=== PATIENT | male | born 1950 | race Caucasian/White ===

== ENCOUNTER 2016-07-24 19:06 | Emergency (ER) | payer MEDICARE ==
--- NOTE | 2016-07-24 20:06 | Emergency Department Record ---
History of Present Illness - General Chief complaint: Vomiting Stated complaint: CAN'T GET ANYTHING TO GO DOWN Time Seen by Provider: 07/24/16 19:31 Source: Patient Mode of Arrival: Ambulatory Limitations: No limitations - History of Present Illness Initial comments: pt took his pills and felt like they got stuck in his esophagus this evening. he has been unable to swallow his saliva and it has been painful to try. he has had this happen before and he thinks his spincter closes but he has never had a medical valuation. now that he has arrived here he feels the symptoms have improved complaint: Vomiting Onset/Timin -: Hour(s) Description of Vomiting: Other Associated Abdominal Pain: No Radiation: None Severity: Mild Consistency: Constant Improves with: None Worsens with: Eating Associated Symptoms: Denies other symptoms - Related Data Home Medications Medication Instructions Recorded Confirmed Last Taken Cholecalciferol (Vitamin D3) 50,000 unit PO WEEKLY 07/24/16 07/24/16 Unknown [Vitamin D] Dutasteride [Avodart] 0.5 mg PO DAILY 07/24/16 07/24/16 Unknown Fexofenadine HCl [Shantel Allergy] 60 mg PO DAILY 07/24/16 07/24/16 Unknown Lamotrigine 25 mg PO DAILY 07/24/16 07/24/16 Unknown [place]-3 Fatty Acids [Fish Oil] 800 mg PO DAILY 07/24/16 07/24/16 Unknown Simvastatin [Zocor] 10 mg PO DAILY 07/24/16 07/24/16 Unknown Allergies Allergy/AdvReac Type Severity Reaction Status Date / Time Penicillins Allergy unknown Verified 09/03/14 15:00 Travel Screening - Travel/Exposure Within Last 30 Days Have you traveled within the last 30 days?: No - Travel/Exposure Within Last Year Have you traveled outside the [place] in the last year?: No - Additonal Travel Details Have you been exposed to anyone with a communicable illness?: No - Travel Symptoms Symptom Screening: None Review of Systems Reviewed: No additional complaints except as noted below Constitutional: Reports: As per HPI. Denies: Chills, Fever, Malaise, Night sweats, Weakness, Weight change Eyes: Reports: As per HPI. Denies: Eye discharge, Eye pain, Photophobia, Vision change ENT: Reports: As per HPI. Denies: Congestion, Dental pain, Ear pain, Epistaxis , Hearing loss, Throat pain Respiratory: Reports: As per HPI. Denies: Cough, Dyspnea, Hemoptysis, Stridor, Wheezes Cardiovascular: Reports: As per HPI. Denies: Arrhythmia, Chest pain, Dyspnea on exertion, Edema, Murmurs, Orthopnea, Palpitations, Paroxysmal nocturnal dyspnea, Rheumatic Fever, Syncope Endocrine: Reports: As per HPI. Denies: Fatigue, Heat or cold intolerance, Polydipsia, Polyuria Gastrointestinal: Reports: As per HPI. Denies: Abdominal pain, Constipation, Diarrhea, Hematemesis, Hematochezia, Melena, Nausea, Vomiting Genitourinary: Reports: As per HPI. Denies: Dysuria, Frequency, Hematuria, Incontinence, Retention, Testicular pain, Testicular mass, Urgency Musculoskeletal: Reports: As per HPI. Denies: Arthralgia, Back pain, Gout, Joint swelling, Myalgia, Neck pain Skin: Reports: As per HPI. Denies: Bruising, Change in color, Change in hair/ nails, Lesions, Pruritus, Rash Neurological: Reports: As per HPI. Denies: Abnormal gait, Confusion, Headache, Numbness, Paresthesias, Seizure, Tingling, Tremors, Vertigo, Weakness Psychiatric: Reports: As per HPI. Denies: Anxiety, Auditory hallucinations, Depression, Homicidal thoughts, Suicidal thoughts, Visual hallucinations Hematological/Lymphatic: Reports: As per HPI. Denies: Anemia, Blood Clots, Easy bleeding, Easy bruising, Swollen glands Past Medical History - SOCIAL HISTORY Smoking Status: Never smoker Alcohol Use: Occassional Drug Use: None - RESPIRATORY Hx Respiratory Disorders: No - CARDIOVASCULAR Hx Cardio Disorders: Yes Comment:: high cholesterol - NEURO Hx Neuro Disorders: Yes Hx Neuropathy: (left LE and foot) - GI Hx GI Disorders: No - Hx Genitourinary Disorders: Yes Hx Prostate Problems: Yes (BPH) - ENDOCRINE Hx Endocrine Disorders: No - MUSCULOSKELETAL Hx Musculoskeletal Disorders: Yes Hx Arthritis: Yes Comment:: hip and pelvic pain - PSYCH Hx Psych Problems: Yes Comment:: Bipolar - HEMATOLOGY/ONCOLOGY Hx Hematology/Oncology Disorders: Yes Hx Blood Transfusions: Yes Hx Blood Transfusion Reaction: No Family Medical History Any Significant Family History?: No Hx Cancer: Father, Mother, Grandparents *Cancer Comment: skin Hx Heart Disease: Father *Heart Comment: [place] Physical Exam - General General Appearance: Alert, Oriented x3, Cooperative, No acute distress - Head Head exam: Normal inspection - Eye Eye exam: Normal appearance, PERRL, EOMI Pupils: Normal accommodation - ENT ENT exam: Normal exam, Mucous membranes moist, Normal external ear exam, Normal orophraynx Ear exam: Normal external inspection. negative: External canal tenderness Nasal Exam: Normal inspection. negative: Discharge, Sinus tenderness Mouth exam: Normal external inspection, Tongue normal Teeth exam: Normal inspection. negative: Dental caries Throat exam: Normal inspection. negative: Tonsillar erythema, Tonsillar exudate - Neck Neck exam: Normal inspection, Full ROM. negative: Tenderness - Respiratory Respiratory exam: Normal lung sounds bilaterally. negative: Respiratory distress - Cardiovascular Cardiovascular Exam: Regular rate, Normal rhythm, Normal heart sounds - GI/Abdominal GI/Abdominal exam: Soft, Normal bowel sounds. negative: Tenderness - Rectal Rectal exam: Deferred - exam: Deferred - Extremities Extremities exam: Normal inspection, Full ROM, Normal capillary refill. negative: Tenderness - Back Back exam: Reports: Normal inspection, Full ROM. Denies: Muscle spasm, Rash noted, Tenderness - Neurological Neurological exam: Alert, CN II-XII intact, Normal gait, Oriented X3 - Psychiatric Psychiatric exam: Normal affect, Normal mood - Skin Skin exam: Dry, Intact, Normal color, Warm Course Vital Signs 07/24/16 19:16 Temperature 98.8 F Pulse Rate 89 Respiratory 20 Rate Blood Pressure 145/105 Pulse Ox 98 Disposition Disposition: Discharge Clinical Impression: Acute obstruction of esophagus Disposition: Home, Self-Care Condition: (1) Good Instructions: Esophageal Stricture (ED), Esophageal Spasm (ED) Additional Instructions: follow up with dr arellano tomorrow to have scope arranged. soft diet tonight. return sooner if worse Forms: Patient Portal Access
== END 2016-07-24 21:06 | disposition home or self-care (01) ==
LOC: ER 19:06
DX: K22.2 Esophageal obstruction (principal); R11.10 Vomiting, unspecified
CPT/HCPCS: 70360; 71020; 99283

== ENCOUNTER 2016-08-06 10:18 | Day surgery (SDC) | payer MEDICARE ==
[2016-08-06] MEDS ORDERED: LIDOCAINE 2% MDV (20MG/ML) 20ML VIAL IV ONE (15:38)
[2016-08-06] MEDS ORDERED: FENTANYL PF 100MCG/2ML VIAL IV ONE (15:38)
[2016-08-06] MEDS ORDERED: PROPOFOL 10 MG/ML VIAL IV ONE (15:38)
--- NOTE | 2016-08-08 11:10 | Operative Note ---
DATE OF SURGERY: 08/06/2016 REFERRING PHYSICIAN: Romulo Owusu DO PREOPERATIVE DIAGNOSIS: See below. POSTOPERATIVE DIAGNOSIS: See below. PROCEDURE: ESOPHAGOGASTRODUODENOSCOPY with multiple biopsies. INDICATION: Dysphagia. HISTORY: Patient was a pleasant 66-year-old gentleman who presented for the first time for upper endoscopy following complaint of dysphagia. He went to the Emergency Department unable to swallow his saliva. In the Emergency Department, he had a chest x-ray, which was fairly unremarkable. Subsequently, his symptoms resolved spontaneously. He denies previous upper endoscopy or upper GI x-ray. He has had intermittent dysphagia for more than a year now. He especially notices problems with pills. He also feels some symptoms related to oropharyngeal dysphagia with a requirement of pressure to swallow food down initially. Intravenous sedation was administered by the Department of Anesthesiology and included Diprivan titrated to effect. PROCEDURE: Following informed consent from this alert individual, including a discussion of the risks and benefits of the procedure and an opportunity for the patient to ask questions, the patient was placed in the left lateral decubitus position. An Olympus [id number] video endoscope was inserted into the esophagus without resistance. The posterior pharynx appeared unremarkable. The vocal cords are normal. The cervical esophagus appeared free from changes. The mid and distal esophagus, however, were abnormal with ringed esophagus noted. The lumen was not significant compromised. The GE junction revealed some edema and erythema, but no britta ulcerations noted. The stomach was entered and found to be unremarkable The pylorus was patent. The duodenal bulb, sweep and descending duodenum were examined in a serial fashion and demonstrated an erythematous mucosa in a patchy distribution. The endoscope was then withdrawn back into the stomach, where retroflexion accomplished following air insufflation failed to demonstrate any changes. The endoscope was then straightened and advanced to the duodenum where biopsies were taken to evaluate for possible duodenitis. The endoscope was then withdrawn back through the distal esophagus where biopsies were then taken from the distal esophageal segment and from the mid esophageal segment and placed in separate containers. Also noted was a white flat polyp at the distal esophagus removed with biopsy forceps. After all biopsies were completed, the endoscope was then withdrawn. The patient tolerated the procedure well and was returned to the recovery area in stable condition. IMPRESSION: 1. Ringed esophagus, most compatible with eosinophilic esophagitis. Biopsies taken from the distal and mid esophagus. 2. Small 3-4 mm polyp in the distal esophagus removed with biopsy forceps. 3. Duodenitis. Biopsies taken. RECOMMENDATIONS: Patient was advised to start with Prilosec 40 mg twice daily. Further recommendations may be forthcoming pending results of biopsy. Will follow up in the GI Clinic in the next 2 months or so to assess his progress. Repeat endoscopy will be discussed as well. As always, thank you for allowing me to participate in the care of your patient. Claudio Pandey, CC: Romulo Owusu DO MTDD
== END 2016-08-06 12:40 | disposition home or self-care (01) ==
LOC: HOP 10:18
PROVIDERS: ATTEND Internal Medicine Gastroenterology
DX: K22.2 Esophageal obstruction (principal); K20.0 Eosinophilic esophagitis; D13.0 Benign neoplasm of esophagus; E78.00 Pure hypercholesterolemia, unspecified; F31.9 Bipolar disorder, unspecified; I10 Essential (primary) hypertension; Z79.899 Other long term (current) drug therapy
CPT/HCPCS: 43239; 00740; 84450; 84460; 85025; 82306; 80048; 81003; 80061; G0103; J3010

== ENCOUNTER 2017-01-05 16:08 | Emergency (ER) | payer MEDICARE ==
[2017-01-05] MEDS ORDERED: ASPIRIN 325 MG TABLET PO ONE (16:10)
[2017-01-05] MEDS ORDERED: MORPHINE SULFATE 5 MG/ML PFS IVP ONE ×2 (16:10→16:36)
--- NOTE | 2017-01-05 16:16 | Emergency Department Record ---
History of Present Illness - General Chief Complaint: Chest Pain Stated Complaint: CHEST PAIN Time Seen by Provider: 01/05/17 16:10 Source: Patient Mode of Arrival: Ambulatory Limitations: No limitations - History of Present Illness Initial Comments: 66 yo male presents with about 15 minutes of mid lower chest pain, shortness of breath and sweating. He denies an history of CAD. He does have a history of esophagitis. No similar symptoms recently. No recent stress test of the heart. he states the pain radiates to the back and it hurts to breath. No recent trip or travel. PCP is Dr Owusu. Complaint: Chest pain -: Minutes(s) Onset: During rest Pain Location: Substernal Pain Radiation: Other (lower chest) Quality: Aching Consistency: Constant Improves With: Nothing Worsens With: Nothing Context: Other Anginal Symptoms: Diaphoresis, Dyspnea - Related Data Home Medications Medication Instructions Recorded Confirmed Last Taken Omeprazole [Omeprazole] 40 mg PO BID 01/05/17 01/05/17 Unknown Allergies Allergy/AdvReac Type Severity Reaction Status Date / Time Penicillins Allergy unknown Verified 09/03/14 15:00 Review of Systems Constitutional: Denies: Chills, Fever, Malaise, Weakness Eyes: Denies: Eye discharge ENT: Denies: Congestion, Throat pain Respiratory: Reports: Dyspnea. Denies: Cough Cardiovascular: Reports: Chest pain. Denies: Palpitations, Syncope Endocrine: Denies: Fatigue Gastrointestinal: Denies: Abdominal pain, Diarrhea, Nausea, Vomiting Genitourinary: Denies: Discharge, Dysuria, Frequency, Hematuria Musculoskeletal: Denies: Arthralgia, Back pain, Neck pain Skin: Denies: Bruising, Change in color, Rash Neurological: Denies: Confusion, Headache, Numbness, Weakness Psychiatric: Denies: Anxiety Hematological/Lymphatic: Denies: Blood Clots, Easy bleeding, Easy bruising, Swollen glands Past Medical History - SOCIAL HISTORY Smoking Status: Never smoker - RESPIRATORY Hx Respiratory Disorders: Yes Hx Sleep Apnea: Yes Hx of CPAP: No - CARDIOVASCULAR Hx Cardio Disorders: Yes Comment:: high cholesterol - NEURO Hx Neuro Disorders: Yes Hx Neuropathy: Yes (left LE and foot) - GI Hx GI Disorders: Yes Hx Reflux: Yes - Hx Genitourinary Disorders: Yes Hx Prostate Problems: Yes (BPH) - ENDOCRINE Hx Endocrine Disorders: No - MUSCULOSKELETAL Hx Musculoskeletal Disorders: Yes Hx Arthritis: Yes Comment:: hip and pelvic pain - PSYCH Hx Psych Problems: Yes Comment:: Bipolar - HEMATOLOGY/ONCOLOGY Hx Hematology/Oncology Disorders: Yes Hx Blood Transfusions: Yes Hx Blood Transfusion Reaction: No Family Medical History Hx Cancer: Father, Mother, Grandparents *Cancer Comment: skin Hx Heart Disease: Father *Heart Comment: [place] Physical Exam - General General Appearance: Alert, Oriented x3, Cooperative, No acute distress, Anxious Limitations: No limitations - Head Head exam: Normal inspection - Eye Eye exam: Normal appearance, PERRL. negative: Conjunctival injection, Periorbital swelling, Scleral icterus - ENT ENT exam: Normal exam, Mucous membranes moist Ear exam: Normal external inspection Nasal Exam: Normal inspection Mouth exam: Normal external inspection - Neck Neck exam: Normal inspection, Full ROM. negative: Tenderness - Respiratory Respiratory exam: Normal lung sounds bilaterally. negative: Respiratory distress - Cardiovascular Cardiovascular Exam: Regular rate, Normal rhythm, Normal heart sounds Peripheral Pulses: 2+: Radial (R), Radial (L) - GI/Abdominal GI/Abdominal exam: Soft. negative: Distended, Tenderness - Rectal Rectal exam: Deferred - exam: Deferred - Extremities Extremities exam: Normal inspection, Full ROM, Normal capillary refill. negative: Tenderness - Back Back exam: Reports: Normal inspection, Full ROM. Denies: Muscle spasm, Rash noted, Tenderness - Neurological Neurological exam: Alert, Normal gait, Oriented X3 - Psychiatric Psychiatric exam: Normal affect, Normal mood - Skin Skin exam: Diaphoretic Course - Reevaluation(s) Reevaluation #1: EKG NSR, mild artifact due to movement. rate is 79, intervals are normal, axis is normal, ST no ST elevation or depression. Repeat will be performed LIDIA after pain controlled. 01/05/17 16:14 EKG #2 sinus rhythm rate 78, intervals normal, axis normal, ST no acute changes still mild artifact in inferior leads. 01/05/17 16:20 The patient reports he is steadily improving He is not shaking as much so a third EKG was ordered 01/05/17 16:47 Third EKG completed without any artifact EKG#3 16:48 NSR rate 64, intervals normal, axis normal, ST NS inferior changes. 01/05/17 16:55 The pain with inspiration is still present with mild pain to the back. ACS still strongly considered as well as PE or dissection given the pain through to the back. 01/05/17 16:56 The labs are now back, no acute changes on the CBC, CMP, Troponin 01/05/17 17:38 The CXR report was negative 01/05/17 17:40 CTA of the chest is negative for acute process. No PE, aneurysm or dissection. 01/05/17 17:42 The patient is completely pain free at this time He prefers [facility] for consultation/transfer. 01/05/17 17:48 I TAN [facility] at [facility] He accepts the patient for transfer. The patient remains pain free 01/05/17 17:59 Medical Decision Making - Lab Data Result diagrams: 01/05/17 16:15 01/05/17 16:15 Disposition Clinical Impression: Chest pain Qualifiers: Chest pain type: unspecified Qualified Code(s): R07.9 - Chest pain, unspecified Dyspnea Qualifiers: Dyspnea type: unspecified Qualified Code(s): R06.00 - Dyspnea, unspecified Disposition: Acute Care Hospital Transfer Condition: (1) Good Forms: Patient Portal Access Quality - Quality Measures Quality Measures: N/A - Blood Pressure Screening Does Patient Have Any of the Following: No Blood Pressure Classification: Hypertensive Reading Systolic Measurement: 144 Diastolic Measurement: 77 Screening for High Blood Pressure: < Pre-Hypertensive BP, F/U Documented > [ [id number]] Pre-Hypertensive Follow-up Interventions: Referral to alternative/primary care provider.
[2017-01-05] MEDS: NITROGLYCERIN 0.4MG SL TABLET #25 BTL SL PRN ×3 (16:31→17:02)
[2017-01-05 17:01] LABS: HEMATOCRIT 42.2 % (42.0-52.0); HEMOGLOBIN 14.6 gm/dl (14.0-18.0); MEAN CELL VOLUME 90.6 fl (81-97); MEAN CORPUSCULAR HEMOGLOBIN 31.3 pg (27-33); MEAN CORPUSCULAR HGB CONC 34.6 g/dl (32-36); MEAN PLATELET VOLUME 9.6 fl (7.4-10.4); PLATELET COUNT 271 K/uL (130-400); RED BLOOD COUNT 4.66 M/uL (4.40-5.70); RED CELL DISTRIBUTION WIDTH 13.2 % (11.5-14.5); WHITE BLOOD COUNT W/O DIFF 8.1 K/uL (4.2-12.2)
[2017-01-05 17:10] LABS: INR 1.02; PARTIAL THROMBOPLASTIN TIME 22.9 SECONDS (24.5-39.1)
[2017-01-05 17:35] LABS: ALB/GLOB RATIO 1.7 (1.1-1.8); ALBUMIN 4.3 g/dL (4.0-5.0); ALKALINE PHOSPHATASE 74 U/L (40-129); ALT/SGPT 27 U/L (<41); AST/SGOT 34 U/L (10.0-50.0); BLOOD UREA NITROGEN 17 mg/dL (8-23); CKMB 4.2 ng/mL (<6.73); CREATINE PHOSPHOKINASE 108 U/L (39-308); EST GLOMERULAR FILTRATION RATE > 60 mL/min; GLUCOSE,RANDOM 113 mg/dL (74-109); TOTAL PROTEIN 6.8 g/dL (6.6-8.7)
[2017-01-05 17:36] LABS: TROPONIN I < 0.30 ng/mL (0.00-0.300)
--- NOTE | 2017-01-07 08:16 | RADIOLOGY REPORT ---
EXAM: PORTABLE CHEST HISTORY: CHEST PAIN. TECHNIQUE: A single frontal view of the chest was obtained. Comparison: 07/24/16 chest. FINDINGS: The heart size is normal. Scarring in the left lung base. The lungs are otherwise clear. No pneumothorax. IMPRESSION: NO ACUTE CARDIOPULMONARY PROCESS. JOB NUMBER: [id number] MTDD
--- NOTE | 2017-01-07 08:19 | CT ANGIOGRAM REPORT ---
EXAM: CTA OF THE CHEST HISTORY: CHEST PAIN. TECHNIQUE: CTA of the chest was performed following IV administration of 93 ml of Omnipaque 350 contrast. Axial images were obtained with coronal and sagittal MIP reconstructions. Comparison: none. FINDINGS: The mediastinal vasculature enhances normally. There is no intraluminal filling defect to suggest pulmonary embolus. Negative for thoracic aortic aneurysm or dissection. The heart and pericardium are unremarkable. Limited evaluation of the upper abdomen is unremarkable. The osseous structures are grossly intact. No mediastinal or hilar adenopathy. There is no pneumothorax. The visualized airways are patent. Minor scarring in the lung bases. The lungs are otherwise clear. IMPRESSION: NEGATIVE FOR ACUTE INTRATHORACIC PROCESS. JOB NUMBER: [id number] [facility]
== END 2017-01-05 18:56 | disposition short-term general hospital (02) ==
LOC: ER 16:08
DX: R07.2 Precordial pain (principal); R06.00 Dyspnea, unspecified
CPT/HCPCS: 99285 ×2; 96376; 96374; 82550; 85730; 85610; 82553; 84484; 80053; 85027; 71010; 71275; 93005; 93010; Q9967; J2270

== ENCOUNTER 2018-08-11 08:27 | Day surgery (SDC) | payer MEDICARE ==
[2018-08-11] MEDS ORDERED: LIDOCAINE 2% MDV (20MG/ML) 20ML VIAL IV ONE (08:28)
[2018-08-11] MEDS ORDERED: PROPOFOL 10 MG/ML VIAL IV ONE (08:28)
[2018-08-11] MEDS ORDERED: FENTANYL PF 100MCG/2ML VIAL IV ONE (08:28)
--- NOTE | 2018-08-11 15:30 | Operative Note ---
OPERATION: ESOPHAGOGASTRODUODENOSCOPY with multiple biopsies. INDICATION: History of eosinophilic esophagitis noted endoscopically. The patient had one episode where a pill lodged in his esophagus. Since that time, he has had no episodes at all of any dysphagia. He is currently using 20 mg of Prilosec daily. He denies significant pyrosis. Overall, he feels quite well. His last endoscopy was 2 years ago. ANESTHESIA: Intravenous sedation was administered by the department of anesthesiology and included Diprivan titrated to effect. PROCEDURE: Following informed consent from this alert individual, including a discussion of the risks and benefits of the procedure and an opportunity for the patient to ask questions, the patient was in the left lateral decubitus position. The Olympus [id number] video endoscope was inserted into the esophagus without resistance. The proximal esophagus had a normal appearance with normal folds and distensibility. The mid esophagus demonstrated some rings noted compatible with history of EOE although the lumen did not seem to be significantly compromised. The distal esophageal segment appeared to be unremarkable as did the squamocolumnar junction. The stomach was entered and found to be normal. The pylorus was patent. The duodenal bulb, sweep and descending duodenum were examined in a serial fashion and found to be normal as well. The endoscope was drawn back in the stomach. Retroflexion accomplished following air insufflation was unremarkable. The endoscope was then straightened and withdrawn back throughout the distal esophagus where biopsies were taken from the distal esophageal segment with a second set of biopsies taken from the proximal esophagus to again evaluate for possible EOE. The endoscope was then withdrawn. The patient tolerated the procedure well and was returned to the recovery area in stable condition. IMPRESSION: Eosinophilic esophagitis endoscopically - mild. The patient has no symptoms of dysphagia. Biopsies taken from the distal and proximal esophagus. RECOMMENDATION: Pending results of pathology, the patient most likely will continue with omeprazole 20 mg daily. He will be following with Dr. Owusu as well. Further recommendations forthcoming. As always, thank you for allowing me to participate in the care of your patient. CC: DO DONATO Cummings
== END 2018-08-11 09:52 | disposition home or self-care (01) ==
LOC: HOP 08:27
PROVIDERS: ATTEND Internal Medicine Gastroenterology
DX: Z87.19 Personal history of other diseases of the digestive system (principal); K21.0 Gastro-esophageal reflux disease with esophagitis; E78.00 Pure hypercholesterolemia, unspecified; I10 Essential (primary) hypertension
CPT/HCPCS: 43239; 00731; J3010

== ENCOUNTER 2019-05-03 04:42 | Emergency (ER) | payer MEDICARE ==
[2019-05-03] MEDS ORDERED: METHYLPREDNISOLONE PF 125MG/VIAL IVP ONE (04:50)
[2019-05-03] MEDS ORDERED: RANITIDINE HCL 50 MG in 0.9 % SODIUM CHLORIDE 100ML 100 ML IVPB ONE (04:50)
[2019-05-03] MEDS ORDERED: DIPHENHYDRAMINE HCL 50 MG/ML VIAL IVP ONE (04:50)
--- NOTE | 2019-05-03 04:50 | Emergency Department Record ---
History of Present Illness - General Chief complaint: Allergic Reaction Stated complaint: ALLERGIC REACTION TO MED Time Seen by Provider: 05/03/19 04:44 Source: Patient, Family Mode of Arrival: Ambulatory Limitations: No limitations - History of Present Illness Initial Comments: 68 yo male presents with mild lower lip swelling that started around 5 pm . He reports that he had several days of cough. The cough has been non productive. The cough is now nearly gone. No fevers. He was diagnosed with Influenza A on . He had a chest XR performed at that time as well. The chest XR suggested a infiltrate in the RML. He was started on Motrin and Zithromax. Of note, he is on Losartan as well. No trouble with swallowing. No speech changes. No throat swelling. No upper lip swelling. Regarding the influenza symptoms he is much better. No fevers, chills, headaches or body aches. All of those symptoms have resolved. MD Complaint: Allergic reaction, Facial swelling (Lower lip) -: Hour(s) (12) Symptoms: Lip swelling (Lower only) Severity: Mild Treatment Prior to Arrival: None Previous Allergy History: None - Related Data Previous Rx's Medication Instructions Recorded Prednisone [Prednisone 20Mg] 20 mg PO BID #10 tab 05/03/19 Allergies Allergy/AdvReac Type Severity Reaction Status Date / Time Penicillins Allergy unknown Verified 05/03/19 04:52 Review of Systems Constitutional: Denies: Chills, Fever, Malaise, Weakness Eyes: Denies: Eye discharge, Eye pain, Vision change ENT: Denies: Congestion, Dental pain, Ear pain, Throat pain Respiratory: Reports: Cough. Denies: Dyspnea, Wheezes Cardiovascular: Denies: Chest pain Endocrine: Denies: Fatigue Gastrointestinal: Denies: Abdominal pain, Diarrhea, Nausea, Vomiting Genitourinary: Denies: Dysuria, Frequency, Hematuria Musculoskeletal: Denies: Arthralgia, Back pain, Myalgia Skin: Denies: Bruising, Change in color, Rash Neurological: Denies: Headache, Vertigo, Weakness Psychiatric: Denies: Anxiety Hematological/Lymphatic: Denies: Easy bleeding, Easy bruising Past Medical History - SOCIAL HISTORY Smoking Status: Never smoker - RESPIRATORY Hx Respiratory Disorders: Yes Hx Sleep Apnea: Yes Hx of CPAP: No - CARDIOVASCULAR Hx Cardio Disorders: Yes Hx Hypertension: Yes Comment:: high cholesterol - NEURO Hx Neuro Disorders: Yes Hx Neuropathy: Yes (left LE and foot) - GI Hx GI Disorders: Yes Hx Reflux: Yes Comment:: dysphagia - Hx Genitourinary Disorders: Yes Hx Prostate Problems: Yes (BPH) - ENDOCRINE Hx Endocrine Disorders: No - MUSCULOSKELETAL Hx Musculoskeletal Disorders: Yes Hx Arthritis: Yes Comment:: hip and pelvic pain - PSYCH Hx Psych Problems: Yes Comment:: Bipolar - HEMATOLOGY/ONCOLOGY Hx Hematology/Oncology Disorders: Yes Hx Blood Transfusions: Yes Hx Blood Transfusion Reaction: No Family Medical History Hx Cancer: Father, Mother, Grandparents *Cancer Comment: skin Hx Heart Disease: Father *Heart Comment: NE Physical Exam - General General Appearance: Alert, Oriented x3, Cooperative, No acute distress Limitations: No limitations - Head Head exam: Atraumatic, Normal inspection - Eye Eye exam: Normal appearance, PERRL. negative: Conjunctival injection, Periorbital swelling, Scleral icterus - ENT ENT exam: Normal exam, Mucous membranes dry, Mucous membranes moist, Normal orophraynx Ear exam: Normal external inspection Nasal Exam: Normal inspection Mouth exam: Other (Mild lower lip swelling). negative: Normal external inspection, Drooling, Muffled voice, Tongue elevation, Tongue normal, Trismus Teeth exam: Normal inspection Throat exam: Normal inspection - Neck Neck exam: Normal inspection, Full ROM. negative: Lymphadenopathy - Respiratory Respiratory exam: Normal lung sounds bilaterally. negative: Respiratory distress, Rhonchi, Stridor, Wheezes - Cardiovascular Cardiovascular Exam: Regular rate, Normal rhythm, Normal heart sounds - Back Back exam: Denies: CVA tenderness (R), CVA tenderness (L) - Neurological Neurological exam: Alert, CN II-XII intact, Oriented X3. negative: Altered - Psychiatric Psychiatric exam: Normal affect, Normal mood - Skin Skin exam: Dry, Intact, Normal color, Warm Course - Reevaluation(s) Reevaluation #1: 05/03/19 05:30 The patient is doing well The current findings are very mild and do not seem to be showing signs of progression I explained that there is some concern that the Losartan could cause the swelling The new addition of Motrin and Zithromax are also possible as well I recommend stopping the Motrin and Zithromax. He is essentially not symptomatic anymore and he had had 4 doses of Zithromax. I strongly recommend discussion of the Losartan use with his PCP prior to continuing. 05/03/19 07:00 The patient's PCP was notified of the visit, new medications (Motrin and Zithromax) and possible role of Losartan in the lip edema Disposition Disposition: Discharge Clinical Impression: Lip edema Disposition: Home, Self-Care Condition: (1) Good Instructions: Angioedema (ED) Additional Instructions: Stop taking the Motrin and the Zithromax I recommend stopping your Losartan and discussing it's use with your family doctor as this medication can cause similar swelling of the lips Return to the ER if you have any worsening of symptoms, short of breath, throat swelling, or any new concerns Apply ice to the area every 3-4 hours to minimize swelling Take the Prednisone twice daily for 5 days You may take Benadryl 25-50mg every 6 hours as directed Follow up as scheduled this week with Dr Owusu Prescriptions: Prednisone [Prednisone 20Mg] 20 mg PO BID #10 tab Forms: Patient Portal Access Time of Disposition: 20:30 Quality - Quality Measures Quality Measures: N/A - Blood Pressure Screening Does Patient Have Any of the Following: No Blood Pressure Classification: Pre-Hypertensive BP Reading Systolic Measurement: 148 Diastolic Measurement: 81 Screening for High Blood Pressure: < Pre-Hypertensive BP, F/U Documented > [G8950] Pre-Hypertensive Follow-up Interventions: Referral to alternative/primary care provider.
== END 2019-05-03 06:07 | disposition home or self-care (01) ==
LOC: ER 04:42
DX: R60.0 Localized edema (principal); R05 Cough; I10 Essential (primary) hypertension
CPT/HCPCS: 96365; 96375; 99284; J1200; J2780; J2930